=== PATIENT | female | born 1935 | race Caucasian/White ===

== ENCOUNTER 2019-07-13 18:39 | Inpatient (IN) | payer MEDICARE ==
[~2019-07-13] VITALS: Ht 154.9 cm; Wt 65.2 kg
[2019-07-13 18:45] VITALS: BP 238/84
[2019-07-13] MEDS ORDERED: LIPITOR10 MG PO (18:51)
[2019-07-13] MEDS ORDERED: BENICAR20 MG PO (18:51)
[2019-07-13] MEDS ORDERED: LABETALOL HCL100 MG PO (18:51)
[2019-07-13] MEDS ORDERED: SLOW FE142 MG PO (18:53)
[2019-07-13 19:21] LABS: ABSOLUTE EOSINOPHILS 0.2 thou/uL (0.0-0.7); ABSOLUTE LYMPHOCYTES 2.3 thou/uL (0.8-5.3); ABSOLUTE MONOCYTES 0.6 thou/uL (0.0-1.2); ABSOLUTE NEUTROPHILS 4.3 thou/uL (1.6-8.1); BASOPHILS 0.3 %; EOSINOPHILS 3.2 %; HEMOGLOBIN 13.7 gm/dL (12.0-15.0); LYMPHOCYTES 30.9 %; MCHC 33.5 g/dL (28.0-37.0); MCV 92.4 fL (80.0-100.0); MONOCYTES 7.6 %; MPV 8.2 fl. (7.2-11.1); NUCLEATED RBCS 0 /100WBC; PLATELET COUNT* 274 thou/uL (150-400); RBC 4.43 mil/uL (4.20-5.00); RDW-CV 14.4 % (10.5-14.5); WBC 7.5 thou/uL (4.0-11.0)
[2019-07-13 19:22] LABS: CALCIUM 8.4 mg/dL (8.5-10.1); CREATININE 0.8 mg/dL (0.6-1.3); POTASSIUM 4.1 mmol/L (3.5-5.1)
[2019-07-13 19:27] LABS: APTT 27.3 Seconds (25.0-31.3); PROTIME 10.3 Seconds (9.20-11.50)
[2019-07-13 19:33] LABS: ALBUMIN 3.7 g/dL (3.4-5.0); TOTAL BILIRUBIN 0.6 mg/dL (<0.1-1.0); TOTAL PROTEIN 7.3 g/dL (6.4-8.2)
[2019-07-13 19:49] LABS: URINE BILIRUBIN NEGATIVE (Negative); URINE BLOOD NEGATIVE (Negative); URINE CLARITY CLEAR; URINE COLOR YELLOW; URINE GLUCOSE-RANDOM NEGATIVE (Negative); URINE KETONES NEGATIVE (Negative); URINE LEUKOCYTES-REFLEX 1+ (Negative); URINE NITRITE-REFLEX NEGATIVE (Negative); URINE PROTEIN NEGATIVE (Negative); URINE UROBILINOGEN 0.2 E.U./dl (0.2-1.0)
[2019-07-13 19:53] LABS: SQUAMOUS >10 Many /LPF (0-3)
[2019-07-13 19:55] LABS: URINE WBC-REFLEX 0-5 Rare /HPF (0-5)
[2019-07-13 19:56] LABS: URINE RBC 0-2 Rare /HPF (0-2)
[2019-07-13 19:57] LABS: HYALINE CASTS 0-3 Few /LPF (None Seen); MUCUS >6 Heavy strn/LPF (None Seen)
[2019-07-13 19:58] LABS: CRYSTALS None Seen /LPF (None Seen); YEAST-REFLEX Present (None Seen)
[2019-07-13 22:40] VITALS: BP 176/82
[2019-07-13 23:00] VITALS: BP 187/86
[2019-07-14 04:00] VITALS: BP 121/60
--- NOTE | 2019-07-14 04:25 | NUR ---
PT ALERT ORIENTED. UP WITH ASSIST OF ONE. BP 180/80S. DR HARDEN NOTIFIED. DR HARDEN DID NOT WANT PT TO HAVE ANTIHYPERTENSIVE. PRN ORDER SET ORDERED FOR TYLENOL FOR HEAD ACHE AND HIP PAIN. DENIES NAUSIA. TELEMETRY SHOWS SR. WILL CONTINUE TO MONITOR.
[2019-07-14 09:22] LABS: ANION GAP 8 mmol/L (7-16); BUN 13 mg/dL (7-18); CHLORIDE 107 mmol/L (98-107); CHOLESTEROL 176 mg/dL (<200); CO2 26 mmol/L (21-32); CREATININE 0.8 mg/dL (0.6-1.3); GLUCOSE 81 mg/dL (70-99); HDL CHOLESTEROL 91 mg/dL (>40); LDL CHOLESTEROL 79 mg/dL (<100); MAGNESIUM 1.6 mg/dL (1.8-2.4); POTASSIUM 3.7 mmol/L (3.5-5.1); SODIUM 141 mmol/L (136-145); TC:HDL 1.9 Ratio (Not establshd); TRIGLYCERIDE 32 mg/dL (<150); VLDL 6 mg/dL (<40)
[2019-07-14 09:23] LABS: SERUM ASSESSMENT Clear
--- NOTE | 2019-07-14 11:00 | NUR ---
PT REFUSES MEDS.STATES SHE TAKES THEM IN THE EVENING. WILL GIVE MEDS IN EVENING. BP STABLE
[2019-07-14 13:18] VITALS: BP 108/47
--- NOTE | 2019-07-14 16:09 | EKG ---
[place] [address] ELECTROCARDIOGRAM REPORT Name: KESHAEMEKA Room: [address] ADM IN M.R.#: [id number] Admission: 07/13/19 Attend Phys: Bro Bernal, Discharge: Date of : 33 Date of Service: 07/13/191858 Report #: [id number] THIS REPORT FOR: //name// [facility] ED Test Date: 2019-07-13 Test Time: 18:59:22 Pat Name: EMEKA REBOLLEDO Department: Room: [facility] Gender: F Perforator Loader: ANTHONY : 1935 Requested By: Hero Forte Order Number: [id number] MD: Antonio Dowell Measurements Intervals [place] Rate: 81 P: 60 WI: 154 QRS: 15 QRSD: 99 T: 10 QT: 387 QTc: 450 Interpretive Statements Sinus rhythm Multiple premature complexes, vent & supraven No previous ECG available for comparison Electronically Signed On 07-14-2019 16:08:14 CDT by Antonio Dowell [email or web address] <ELECTRONICALLY SIGNED> By: Antonio Dowell MD, FACC 07/14/19 1608 1859 58 Antonio Dowell MD, [facility] /EPI
--- NOTE | 2019-07-14 17:30 | NUR ---
PT UP IN ROOM WITH STEADY GAIT. DENIES DIZZINESS. NIH SCORE 0. TOLERATING PO WELL. MRI IN AM.
[2019-07-14 20:00] VITALS: BP 154/74
[2019-07-15] VITALS: BP 106/47
[2019-07-15 02:07] LABS: GLYCOHEMOGLOBIN (HGB A1C) 5.2 % (4.8-5.6)
[2019-07-15 04:00] VITALS: BP 157/68
--- NOTE | 2019-07-15 04:47 | NUR ---
ASSUMED PT CARE AT APPROX 1930. PT IS AWAKE AND ORIENTED X4. CELL POURER IN PLACE TRACING SR. PT C/O HEADACHE THAT IS RELIEVED BY PAIN MEDS GIVEN PER MAR. CALL LIGHT WITHIN REACH. HOURLY ROUNDING DONE FOR PT SAFETY.
[2019-07-15 08:00] VITALS: BP 167/81
[2019-07-15 12:00] VITALS: BP 181/67
[2019-07-15 14:00] VITALS: BP 177/69
--- NOTE | 2019-07-15 14:40 | 2DMMODE ---
[place] [address] 2 D/M-MODE ECHOCARDIOGRAM Name: EMEKA REBOLLEDO Room: [address] IN .R.#: [id number] Admission: 07/13/19 Attend Phys: Bro Bernal, Discharge: Date of : 33 Date of Service: 07/15/19 1438 Report #: [id number] THIS REPORT FOR: cc: FAM - No family physician/PCP FAM - No family physician/PCP Narinder Castillo MD [facility] ~ APPROVED REPORT Study performed: 07/15/2019 10:06:57 EXAM: Comprehensive 2D, Doppler, and color-flow Echocardiogram Patient Location: In-Patient Room #: [facility] Status: routine BSA: 1.62 HR: 87 bpm BP: 167/81 mmHg Rhythm: NSR Other Information Study Quality: Good Indications CVA/TIA Echo Enhancing Agent Indication: Rule out Shunt Agent(s) / Amount(s) Used: Agitated Saline 10 cc 2D Dimensions IVSd: 8.95 (7-11mm) LVOT Diam: 20.32 (18-24mm) LVDd: 43.69 mm PWd: 8.05 (7-11mm) Ascending Ao: 27.60 (22-36mm) LVDs: 20.67 (25-40mm) Aortic Root: 26.08 mm Volumes Left Atrial Volume (Systole) LA ESV Index: 28.60 mL/m2 Aortic Valve AoV Peak Rafael.: 2.96 m/s AO Peak Gr.: 35.14 mmHg LVOT Max P.46 mmHg AO Mean Gr.: 22.05 mmHg LVOT Mean P.36 [place] [address] 2 D/M-MODE ECHOCARDIOGRAM Name: EMEKA REBOLLEDO Room: [address] IN M.R.#: [id number] Admission: 07/13/19 Attend Phys: Bro Bernal, Discharge: Date of : 33 Date of Service: 07/15/19 1438 Report #: [id number] LVOT Max V: 1.37 m/s AO V2 VTI: 68.82 cm LVOT Mean V: 0.83 m/s SILVER (VTI): 1.40 cm2 LVOT V1 VTI: 29.66 cm Mitral Valve E/A Ratio: 1.01 MV Decel. Time: 211.34 ms MV E Max Rafael.: 1.37 m/s MV PHT: 61.29 ms MVA (PHT): 3.59 cm2 TDI E/Lateral E': 13.70 E/Medial E': 17.13 Medial E' Rafael.: 0.08 m/s Lateral E' Rafael.: 0.10 m/s Pulmonary Valve PV Peak Rafael.: 1.19 m/s PV Peak Gr.: 5.66 mmHg Tricuspid Valve RAP Estimate: 5.00 mmHg TR Peak Gr.: 44.00 mmHg RVSP: 49.00 mmHg PA Pressure: 49.00 mmHg Left Ventricle The left ventricle is normal size. There is normal LV segmental wall motion. There is normal left ventricular wall thickness. Left ventricular systolic function is normal. The left ventricular ejection fraction is within the normal range. LVEF is 60-65%. The left ventricular diastolic function is normal. Right Ventricle The right ventricle is normal size. The right ventricular systolic function is normal. Atria The left atrium size is normal. The interatrial septum is intact with no evidence for an atrial septal defect. The right atrium size is normal. Aortic Valve Moderate aortic valve sclerosis. No aortic regurgitation is present. Moderate aortic stenosis. Mitral Valve There is mitral annular calcification. Trace [place] [address] 2 D/M-MODE ECHOCARDIOGRAM Name: EMEKA REBOLLEDO Room: [address] IN [facility]#: [id number] Admission: 07/13/19 Attend Phys: Bro Bernal, Discharge: Date of : 33 Date of Service: 07/15/19 1438 Report #: [id number] evidence of mitral valve stenosis. Tricuspid Valve The tricuspid valve is normal in structure. Mild tricuspid regurgitation. Moderate pulmonary hypertension. Pulmonic Valve The pulmonary valve is normal in structure. Trace pulmonic regurgitation. Great Vessels The aortic root is normal in size. IVC is normal in size and collapses >50% with inspiration. Pericardium There is no pericardial effusion. <Conclusion> There is normal left ventricular wall thickness. Left ventricular systolic function is normal. The left ventricular ejection fraction is within the normal range. LVEF is 60-65%. The right ventricle is normal size. The left atrium size is normal. Moderate aortic valve sclerosis. No aortic regurgitation is present. Moderate aortic stenosis. There is mitral annular calcification. Trace mitral regurgitation. No evidence of mitral valve stenosis. The tricuspid valve is normal in structure. Mild tricuspid regurgitation. Moderate pulmonary hypertension. IVC is normal in size and collapses >50% with inspiration. There is no pericardial effusion. There is normal LV segmental wall motion. The interatrial septum is intact with no evidence for an atrial septal defect. <ELECTRONICALLY SIGNED> By: Narinder Castillo MD, FACC 07/15/19 1438 1438 1438 Narinder Castillo MD, FACC /INF
--- NOTE | 2019-07-15 15:02 | NUR ---
Pt is A&O. Resides at home with her . Active and independent. Pt has a walker and cane that she can use for community distances as needed. No hx of HH. Hx of outpt therapy. Hx of skilled at a facility in [place], [place]. Pt's PCP is Dr Chapis Braden [phone], out of [facility]. Pt's goal is to return home at [place], no needs anticipated.
--- NOTE | 2019-07-15 17:12 | NUR ---
PT. AOX4, VSS, AD. ERIC, NSR ON MONITOR, PAIN UNDER CONTROL, INDEPENDENT WITH ADLS, HOURLY ROUNDING PERFORMED. PT. OFF UNIT FOR MRI THIS AM. CALL LIGHT AND PERSONAL BELONGINGS PLACED WITHIN REACH.
[2019-07-15] MEDS ORDERED: SERTRALINE HCL100 MG PO (23:31)
[2019-07-15] MEDS ORDERED: PROTONIX40 M1 PO (23:32)
[2019-07-15] MEDS ORDERED: FISH OIL 1,0001 EAC9 PO (23:33)
[2019-07-16 00:27] VITALS: BP 120/56
--- NOTE | 2019-07-16 03:38 | NUR ---
PT STATED THAT MEDICATIONS ON THE MAR ARE INCORRECT, PT GAVE A LIST AND STEP DAUGHTER CALLED TO GIVE ANOTHER LIST, MED REC UPDATED WITH STEPDAUGHTERS LIST AFTER DISCUSSING WITH STEPDAUGHTER AND PT. PHAMARCY SHOULD BE CONTACTED FOR VERIFICATION. PT BLOOD PRESSURE WAS ELEVATED GIVEN SCHEDULED MEDS AND PRN TO STABLIZE BP. BP CONTROLLED THROUGHOUT THE NIGHT.
[2019-07-16 04:27] VITALS: BP 135/40
[2019-07-16 08:00] VITALS: BP 171/61
[2019-07-16 11:30] VITALS: BP 132/54
--- NOTE | 2019-07-16 12:50 | NUR ---
Per ilana Hopson held today, Pt's sx and BP need to be better controlled prior to dc. Goal is home at dc, no needs anticipated.
[2019-07-16] MEDS ORDERED: MOBIC7.5 MG PO (13:46)
[2019-07-16] MEDS ORDERED: COQ-1030 MG PO (13:46)
[2019-07-16 16:00] VITALS: BP 114/51
--- NOTE | 2019-07-16 17:27 | NUR ---
ASSUMED CARE OF PT APPROX 0730. REASSESMENT COMPLETED CAHRTED, MEDICATIONS GIVEN CHARTED. PTS DAUGHTER CALLED THIS AFTERNOON TO CONFIRM MEDICATIONS. MED LIST UP TO DATE. PLAN OF CARE DISCUSSED WITH PHYSICAN. SAFTEY PRECAUTIONS UTILIZED, HOURLY ROUNDING. BED IN LOW POSITION AND CALL LIGHT WITHIN REACH.
[2019-07-16 19:30] VITALS: BP 118/55
[2019-07-17] VITALS: BP 101/42
[2019-07-17 04:30] VITALS: BP 143/56
[2019-07-17 08:00] VITALS: BP 134/56
[2019-07-17 10:36] LABS: CALCIUM 8.8 mg/dL (8.5-10.1); CREATININE 0.9 mg/dL (0.6-1.3)
--- NOTE | 2019-07-17 11:11 | NUR ---
PT HAS RESTED T/O MORNING WIHTOUT COMPLAINT. VSS ON RA. NO DEFICITS. PT IS STEADY WITHOUT ASSIST. REPORTS FEELING GREAT TODAY. WILL D/C TO HOME. NO FURTHER REQUESTS.CLWR
[2019-07-17 11:47] VITALS: BP 94/41
[2019-07-17 11:55] VITALS: BP 94/41
[2019-07-17] MEDS ORDERED: LABETALOL HCL100 MG PO (12:28)
[2019-07-17] MEDS ORDERED: ASA81BEC PO (12:28)
[2019-07-17] MEDS ORDERED: PLAVIX 75 MG TA75 M1 PO (12:28)
[2019-07-17] MEDS ORDERED: LIPITOR 40 MG T40 M1 PO (12:28)
== END 2019-07-17 15:28 | disposition home or self-care (01) | DRG 78 ==
LOC: M.ERS 18:39 → M.TBA-ER 21:11 → M.2W 21:11
PROVIDERS: Family Medicine; ADMIT Internal Medicine
DX: I67.4 Hypertensive encephalopathy (principal); G45.9 Transient cerebral ischemic attack, unspecified; I16.1 Hypertensive emergency; I12.9 Hypertensive chronic kidney disease with stage 1 through stage 4 chronic kidney disease, or unspecified chronic kidney disease; N30.91 Cystitis, unspecified with hematuria; N18.2 Chronic kidney disease, stage 2 (mild); E78.00 Pure hypercholesterolemia, unspecified; Z96.642 Presence of left artificial hip joint; M16.12 Unilateral primary osteoarthritis, left hip; R04.0 Epistaxis; F41.1 Generalized anxiety disorder; I27.20 Pulmonary hypertension, unspecified; I35.0 Nonrheumatic aortic (valve) stenosis; Z88.2 Allergy status to sulfonamides; Z88.8 Allergy status to other drugs, medicaments and biological substances; Z87.891 Personal history of nicotine dependence; Z79.82 Long term (current) use of aspirin; Z79.899 Other long term (current) drug therapy